=== PATIENT | female | born 1950 | race Caucasian/White ===

== ENCOUNTER → 2021-12-06 08:58 | Outpatient (BNVA) | payer MEDICARE, OTHER, SELFPAY | PROVIDERS: PCP Physician Assistant Medical; Visit Provider Psychiatry & Neurology Neurology | DX: R51.9 Headache, unspecified (principal); R41.89 Other symptoms and signs involving cognitive functions and awareness; F32.A Depression, unspecified; Z79.899 Other long term (current) drug therapy | CPT/HCPCS: 99212 ==

== ENCOUNTER → 2022-09-26 11:30 | Outpatient (BNVA) | payer MEDICARE, OTHER, SELFPAY | PROVIDERS: PCP Physician Assistant Medical; Visit Provider Psychiatry & Neurology Neurology | DX: R41.89 Other symptoms and signs involving cognitive functions and awareness (principal); R51.9 Headache, unspecified; F32.A Depression, unspecified | CPT/HCPCS: 99212 ==

== ENCOUNTER → 2022-12-31 15:22 | Outpatient (BNVA) | payer MEDICARE, OTHER, SELFPAY | PROVIDERS: PCP Physician Assistant Medical; Visit Provider Psychiatry & Neurology Neurology | DX: R41.89 Other symptoms and signs involving cognitive functions and awareness (principal); R51.9 Headache, unspecified; F32.A Depression, unspecified | CPT/HCPCS: 99212 ==

== ENCOUNTER 2023-06-20 12:27 | Outpatient (AMB) | payer MEDICARE, OTHER, SELFPAY ==
--- NOTE | 2023-06-20 12:28 | MHC.OFFVIS ---
Intake Vital Signs 06/20/23 12:30 Weight 192 lb 8 oz BP 130/96 H Blood Pressure Location Rt brachial Position Sitting Pulse 104 H Pulse Source Pulse Oximeter Pulse Oximetry (%) 98 Oxygen Delivery Method Room Air Intake Visit Reasons: 6m f/u headaches - LVM Allergies ketoconazole Allergy (Unknown, Verified 06/20/23 12:32) Unknown maladrone Allergy (Unknown, Uncoded 12/31/22 15:41) vision Medication List - Last Reconciled 06/20/23 by Nery Frank MD carboxymethylcellulose sodium (Refresh Contacts eye drops) 1 drp ophthalmic (eye) BID cholecalciferol (vitamin D3) 25 mcg PO DAILY escitalopram oxalate mg PO BID famotidine 40 mg PO DAILY levothyroxine 75 mcg PO DAILY magnesium oxide 400 mg PO BEDTIME methylphenidate HCl 5 mg PO DAILY multivitamin 1 tab PO DAILY HPI HPI Comments History of Present Illness Details 72y/o female comes for follow up of headaches, neck pain, cognitive difficulties , anxiety , depression.she is doing better. Her friend has been diagnosed with throat cancer and she is sad. she is keeping herself occupied with art acivities. she makes journals, notebooks and hand made cards, No headaches.sleep is good . Mood is stable . [facility] Medical History GERD (gastroesophageal reflux disease) Depression Surgical History H/O mastectomy Hx of rotator cuff surgery Hx of hysterectomy History of section Family History Mother Stroke Osteoarthritis Depressive disorder Thyroid disorder Father Swallowing problem Sister Cerebral hemorrhage Social History Alcohol intake: current Alcohol intake frequency: holidays/special occasions only Patient Tobacco Use Status: Never used Tobacco Physical Exam Vital Signs: Last Vital Signs Pulse 104 H 06/20/23 12:30 BP 130/96 H 06/20/23 12:30 Pulse Ox 98 06/20/23 12:30 Oxygen Delivery Method Room Air 06/20/23 12:30 Const Other: antecollis and left laterocollis General: cooperative and healthy appearing Orientation/consciousness: patient oriented x3 Neuro General: patient oriented x3, gait normal, tone normal and moves all extremities Cranial nerves: Yes CN's II-XII intact bilaterally Cognition (Neuro): normal cognition Assessment & Plan Assessment & Plan (1) Cognitive change: Code(s): R41.89 - Other symptoms and signs involving cognitive functions and awareness (2) Bilateral headaches: Comment: resolved Code(s): R51.9 - Headache, unspecified (3) Depression: Code(s): F32.A - Depression, unspecified Plan Continue magnesium 400mg qhs lexapro 10mg bid ritalin 5 mg qam Coding Level of Care Code Est Pt Level 4 (66917) Diagnoses Cognitive change R41.89 Bilateral headaches R51.9 Depression F32.A
[2023-06-20 12:30] VITALS: BP 130/96; PULSE 104; O2SAT 98
== END 2023-06-20 13:01 | disposition home or self-care (01) ==
PROVIDERS: PCP Physician Assistant Medical; Visit Provider Psychiatry & Neurology Neurology
DX: R41.89 Other symptoms and signs involving cognitive functions and awareness (principal); R51.9 Headache, unspecified; F32.A Depression, unspecified
CPT/HCPCS: 99214

== ENCOUNTER → 2023-06-20 12:27 | Outpatient (BNVA) | payer MEDICARE, OTHER, SELFPAY | PROVIDERS: PCP Physician Assistant Medical; Visit Provider Psychiatry & Neurology Neurology | DX: R51.9 Headache, unspecified (principal); R41.89 Other symptoms and signs involving cognitive functions and awareness; F32.A Depression, unspecified | CPT/HCPCS: 99212 ==

== ENCOUNTER 2024-06-15 12:14 | Outpatient (AMB) | payer MEDICARE, OTHER, SELFPAY ==
[2024-06-15 12:39] VITALS: BP 130/90; BMI 37.5
--- NOTE | 2024-06-15 12:39 | A.OFFVIS_ITS ---
Vital Signs 06/15/24 12:39 Height 5 ft Weight 192 lb BMI 37.5 BP 130/90 H Blood Pressure Location Rt brachial Position Sitting Intake Visit Reasons: 1 yr f/u - Headaches Intake Note: Patient presents for 1 year follow up. still having issues with concentration and tiredness. Allergies ketoconazole Allergy (Unknown, Verified 06/15/24 12:43) Unknown maladrone Allergy (Unknown, Uncoded 06/15/24 12:43) vision Medication List - Last Reconciled 06/15/24 by Kwaku Ramon PA-C carboxymethylcellulose sodium (Refresh Contacts eye drops) 1 drp ophthalmic (eye) BID cholecalciferol (vitamin D3) 25 mcg PO DAILY escitalopram oxalate mg PO BID famotidine 40 mg PO DAILY levothyroxine 75 mcg PO DAILY magnesium oxide 400 mg PO BEDTIME methylphenidate HCl 5 mg PO DAILY multivitamin 1 tab PO DAILY HPI Comments Details: 72y/o female comes for follow up of headaches. Her headaches are better. She is more tired and tires easily, she sleeps a lot, and concentration of focus does not last as the medication (Ritalin) wears off. She is better in the morning, in the evenings she does mindless stuff' d/t lack of attention. She is depressed d/t housing situation with neighbors, trauma induced PTSD, she is coping with meditation prayer, psychotherapy. Goes to the [employer] 2-3 times a week, swimming and water aerobics. Her neck pain, just depends on the way she sleeps, she sees the chiropractor 6-7 week intervals. Cognitive difficulties , still with word and name finding difficulty, and spelling. Anxiety, is better controlled with diet and exercise. Mood has declined, feels more depressed, sadness due to family estrangement. Independent with all ADLs. Her friend has been diagnosed with throat cancer and she is sad, she has a psychotherapist and speaks with him every 2-3 weeks. She is keeping herself occupied with art activities. she makes journals, notebooks and hand made cards. She is interested in treatment with Ketamine - Dr. Booker in [place], plans to start her at 50mg. [facility] Medical History GERD (gastroesophageal reflux disease) Depression Surgical History H/O mastectomy Hx of rotator cuff surgery Hx of hysterectomy History of section Family History Mother Stroke Osteoarthritis Depressive disorder Thyroid disorder Father Swallowing problem Sister Cerebral hemorrhage Social History Alcohol intake: current Alcohol intake frequency: holidays/special occasions only Patient Tobacco Use Status: Never used Tobacco Review of Systems Const All systems reviewed & are unremarkable except as noted in HPI and below Physical Exam Vital Signs: Last Vital Signs BP 130/90 H 06/15/24 12:39 BMI result Body Mass Index 37.5 Const General: cooperative, comfortable and no acute distress Nutritional Appearance: average body habitus and obese Orientation/consciousness: patient oriented x3 Eyes Pupils: Equal, round and reactive pupils present Neck Neck: Yes full ROM Resp Effort & Inspection: normal respiratory effort and able to speak in complete sentences Neuro General: patient oriented x3 Cranial nerves: Yes CN's II-XII intact bilaterally, Yes Facial sensation intact/muscles of mastication intact, Yes Equal, round and reactive pupils present, Yes Normal accommodation reflex present, Yes Bilaterally intact EOM present, Yes Nystagmus not present, Yes Normal facial strength present, Yes Midline tongue present, Yes Symmetric palate elevation present, Yes Ability to bilaterally rotate head present and Yes Ability to bilaterally elevate shoulders present Gait exam (Neuro): Normal gait present Motor exam (neuro): 5/5 motor strength present throughout and Normal motor muscle tone present throughout Deep tendon reflexes (DTR's): Right triceps reflex intensity grade: 2+, Left triceps reflex intensity grade: 2+, Rt Biceps (C5, C6): 2+, Left biceps reflex intensity grade: 2+, Right brachioradialis reflex intensity grade: 2+, Left brachioradialis reflex intensity grade: 2+, Right patellar reflex intensity grade: 2+ and Left patellar reflex intensity grade: 2+ Coordination: frdibt-vs-[id number] test normal Psych Appearance: grossly normal Affect: Sad affect present Attitude: cooperative Thought process: Normal thought process present Insight: Good insight present (Psych) Judgement: Good judgement present (Psych) Results Reviewed Results Reviewed: Ketamine Drug Therapy for Neuroplasticity, Dr. Felicia Keenan in [place]. 50mg grading for depression, will take with her licensed therapist and unit secy in office. Assessment & Plan Assessment & Plan (1) Cognitive change: Code(s): R41.89 - Other symptoms and signs involving cognitive functions and awareness Category: Medical (2) Depression: Code(s): F32.A - Depression, unspecified Category: Medical Qualifiers: Depression Type: other depression Qualified Code(s): F32.89 - Other specified depressive episodes Plan Continue magnesium 400mg qhs Lexapro 10mg bid Ritalin 5 mg qam Follow up in 6 months or sooner if needed you may call with questions and concerns. Coding Level of Care Code Est Pt Level 3 (21694) Diagnoses Cognitive change R41.89 Other depression F32.89 Depression Type: other depression
== END 2024-06-15 13:34 | disposition home or self-care (01) ==
PROVIDERS: PCP Physician Assistant Medical; Visit Provider Physician Assistant Medical
DX: R41.89 Other symptoms and signs involving cognitive functions and awareness (principal); F32.89 Other specified depressive episodes
CPT/HCPCS: 99213

== ENCOUNTER → 2024-06-15 12:14 | Outpatient (BNVA) | payer MEDICARE, OTHER, SELFPAY | PROVIDERS: PCP Physician Assistant Medical; Visit Provider Physician Assistant Medical | DX: R41.89 Other symptoms and signs involving cognitive functions and awareness (principal); M54.2 Cervicalgia; F32.89 Other specified depressive episodes | CPT/HCPCS: 99212 ==

== ENCOUNTER 2024-12-14 08:18 | Outpatient (AMB) | payer MEDICARE, OTHER, SELFPAY ==
[2024-12-14 08:21] VITALS: BP 120/78; PULSE 76; O2SAT 96; BMI 38.1
--- NOTE | 2024-12-14 08:21 | MHC.OFFVIS ---
Vital Signs 12/14/24 08:21 Height 5 ft Weight 195 lb BMI 38.1 BP 120/78 Blood Pressure Location Rt brachial Position Sitting Pulse 76 Pulse Source Pulse Oximeter Pulse Oximetry (%) 96 Oxygen Delivery Method Room Air Intake Visit Reasons: 6 mo follow up Intake Note: Patient presents follow up cognitive. Allergies ketoconazole Allergy (Unknown, Verified 12/14/24 08:25) Unknown maladrone Allergy (Unknown, Uncoded 12/14/24 08:25) vision HPI Comments Details: 73y/o female comes for follow up of headaches and sleep disturbances. Her headaches are better managed now, she is on a ketamine journey, supervised in clinic, ptsd, depression, [facility], every 3-4 months as an outpatient She is on 50mg at initial and 50 at 12min later, then swallow after the 12 min, tingling and then deep dark water feeling, then out of body experience like a jelly fish pulsating and relaxed, she saw a candle and vapor of flame and she was the essence of this flame, intertwined like snakes, but a presence of god. One hour later she came out of this mystical experience then completely still for 25 min.She is prescribed by Dr. Keenan, and monitored by her psychotherapist. Sleep, is still fragemented and gets up 2-3 times a night, 3-4am, watching tv or reading, her energy levels still tend to fluctuate. she is taking naps daily 20min to 2 hours. Lack of concentration at night (Ritalin) wears off, makes a list. She is more productive in the mornings and she does mindless tasks , in the evening. Has a list she checks off for eye meds, anterial scleritis (timolol +steroid for inflammation) pressure is now 15 bilaterally and URI on amxo-cluav, and prednisone, inflammatory. She is mentally doing better with her neighbors and trying to find a new therapist, he is leaving after 14 years. Her neck pain, just depends on the way she sleeps, she sees the chiropractor 6-7 week intervals. Cognitive difficulties, still with word and name finding, spelling difficulty. Mood has improved, she is making water coloring books, spring cleaning, declutterring all her art supplies. Goes to the [employer] 2-3 times a week, swimming and water aerobics and is Independent with all ADLs. [facility] Medical History GERD (gastroesophageal reflux disease) Depression Surgical History H/O mastectomy Hx of rotator cuff surgery Hx of hysterectomy History of section Family History Mother Stroke Osteoarthritis Depressive disorder Thyroid disorder Father Swallowing problem Sister Cerebral hemorrhage Social History Alcohol intake: current Alcohol intake frequency: holidays/special occasions only Patient Tobacco Use Status: Never used Tobacco Review of Systems Const All systems reviewed & are unremarkable except as noted in HPI and below Physical Exam Vital Signs: Last Vital Signs Pulse 76 12/14/24 08:21 BP 120/78 12/14/24 08:21 Pulse Ox 96 12/14/24 08:21 Oxygen Delivery Method Room Air 12/14/24 08:21 BMI result Body Mass Index 38.1 Const General: cooperative, comfortable and no acute distress Nutritional Appearance: obese Orientation/consciousness: patient oriented x3 Eyes Pupils: Equal, round and reactive pupils present Neck Neck: Yes full ROM Resp Effort & Inspection: normal respiratory effort and able to speak in complete sentences Neuro General: patient oriented x3 and moves all extremities Cranial nerves: Yes CN's II-XII intact bilaterally, Yes Equal, round and reactive pupils present, Yes Normal accommodation reflex present, Yes Normal facial strength present, Yes Midline tongue present, Yes Normal gag reflex present, Yes Ability to bilaterally rotate head present and Yes Ability to bilaterally elevate shoulders present Psych Thought process: Normal thought process present Thought content: Normal thought content present Assessment & Plan Assessment & Plan (1) Cognitive change: Code(s): R41.89 - Other symptoms and signs involving cognitive functions and awareness Category: Medical (2) Depression: Code(s): F32.A - Depression, unspecified Category: Medical Qualifiers: Depression Type: other depression Qualified Code(s): F32.89 - Other specified depressive episodes Plan Depression Continue magnesium 400mg qhs Lexapro 10mg bid Attention and focus Ritalin 5 mg qam. Follow up in 6 months or sooner if needed you may call with questions and concerns. Patient Instructions: Sleep Hygiene provided: set a scheduled bedtime and wake time to help regulate the circadian rhythm and balance the release of pituitary hormones. Sleep in a dark room, temperatures below 68 degrees, and no devices n bed. Limit caffeinated products 6 hours prior to bed, and limit fluids 2-4 hours prior to bed. Gentle night yoga, diffusing essential oils, and playing soft music can be relaxing. Coding Level of Care Code Est Pt Level 4 (47715) Diagnoses Cognitive change R41.89 Other depression F32.89 Depression Type: other depression Time Spent (min) 30 Comment Improving
== END 2024-12-14 09:25 | disposition home or self-care (01) ==
LOC: HO.HSMS 08:19
PROVIDERS: PCP Physician Assistant Medical; Visit Provider Physician Assistant Medical
DX: R41.89 Other symptoms and signs involving cognitive functions and awareness (principal); F32.89 Other specified depressive episodes
CPT/HCPCS: 99214

== ENCOUNTER → 2024-12-14 08:18 | Outpatient (BNVA) | payer MEDICARE, OTHER, SELFPAY | PROVIDERS: PCP Physician Assistant Medical; Visit Provider Physician Assistant Medical | DX: R41.89 Other symptoms and signs involving cognitive functions and awareness (principal); F32.89 Other specified depressive episodes | CPT/HCPCS: 99212 ==

== ENCOUNTER 2025-05-17 08:18 | Outpatient (AMB) | payer MEDICARE, OTHER, SELFPAY ==
--- OUTSIDE RECORDS SUMMARY | 2024-12-25 09:00 | XMS_ITS | Continuity of Care Document ---
Author Organization [facility] Address [address] [place] [address] [address] [place] [address] Phone Care Team Providers Care Television Maintenance Man Name Role Phone Jian MCCRARY, ELAINA, CODIE, Louis Unavailable U navailable Procedures Procedure Date Duplex Scan-extrem Veins; Uni/ [place] & [place] J Advance Directives Directive Yes / No Effective Date File Name No Information Encounters Encounter Description Practice Location Reason(s) For Visit Diagnoses Date Provider Providers Copied on Encounter [facility], [address] [facility] [address], [place], [id number], [place] tel:[phone] [facility] - [place] - [place] Pain in right leg 5 Jian MCCRARY, ELAINA, CODIE [place]. [address] [place] [address] [address], [place], [place], [id number] , [place]. tel:[phone] Referring Provider: Dedrick Kaiser MD J, [address] [address], [place], [address]. tel:[phone] Family History Family Member Type Diagnosis Age At Onset No Information Payers Payer name Insurance type Covered libertarian ID Authoriza tion(s) Medicare KALYAN PICKARD [id number] [facility] CI [id number] Social History Type Description Quantity Date Captured Comments Sex Female Smoking Status No Information Chief Complaint And Reason For Visit No Information Reason For Referral Reason For Referral No Information History Of Present Illness Encounter Date Complaint History Of Prese nt Illness No Information Functional Status Date Functional Assessmen t No Information Instructions Date Instruction Additional Infor mation No Information Assessments Type Assessment Date No Information Patient Care Teams Name Effective Dates (start - stop) Status Members No Information
--- NOTE | 2025-05-17 08:20 | MHC.OFFVIS ---
Vital Signs 05/17/25 08:21 Height 5 ft Weight 183 lb 4 oz BMI 35.8 BP 128/86 Blood Pressure Location Rt brachial Position Sitting Pulse 84 Pulse Source Pulse Oximeter Pulse Oximetry (%) 97 Oxygen Delivery Method Room Air Intake Visit Reasons: f/u with MD Intake Note: Follow up Cognitive change and Depression last seen Kwaku Hoisting Engineer Required: No Accompanied by: Self / Same As Patient Allergies ketoconazole Allergy (Unknown, Verified 05/17/25 08:21) Unknown maladrone Allergy (Unknown, Uncoded 12/14/24 08:25) vision Medication List - Last Reconciled 05/17/25 by Nery Frank MD carboxymethylcellulose sodium (Refresh Contacts eye drops) 1 drp ophthalmic (eye) BID cholecalciferol (vitamin D3) 25 mcg PO DAILY escitalopram oxalate mg PO BID famotidine 40 mg PO DAILY levothyroxine 75 mcg PO DAILY magnesium oxide 400 mg PO BEDTIME methylphenidate HCl 5 mg PO DAILY montelukast 10 mg PO DAILY multivitamin 1 tab PO DAILY HPI Comments Details: 74y/o female comes for follow up of headaches and sleep disturbances. Her headaches are better . she has 1/month and manageable. she was under stress this summer- as she had to move out of her apartment that she lived for 27 years.she is in a different apartment SLeep is ok . There are some days that she needs tylenol PM to help her sleep. she still has trouble with attention, focusing . she also reports occasional numbness in the left toes and pain . It started when she was going up and down the stairs .It is better with changing shoes History from visit 12/2024- she is on a ketamine journey, ( 100mg q 4 mths ) supervised in clinic, ptsd, depression, [facility], every 3-4 months as an outpatient She is on 50mg at initial and 50 at 12min later, then swallow after the 12 min, tingling and then deep dark water feeling, then out of body experience like a jelly fish pulsating and relaxed, she saw a candle and vapor of flame and she was the essence of this flame, intertwined like snakes, but a presence of god. One hour later she came out of this mystical experience then completely still for 25 min.She is prescribed by Dr. Keenan, and monitored by her psychotherapist. Sleep, is still fragemented and gets up 2-3 times a night, 3-4am, watching tv or reading, her energy levels still tend to fluctuate. she is taking naps daily 20min to 2 hours. Lack of concentration at night (Ritalin) wears off, makes a list. She is more productive in the mornings and she does mindless tasks , in the evening. Has a list she checks off for eye meds, anterial scleritis (timolol +steroid for inflammation) pressure is now 15 bilaterally and URI on amxo-cluav, and prednisone, inflammatory. She is mentally doing better with her neighbors and trying to find a new therapist, he is leaving after 14 years. Her neck pain, just depends on the way she sleeps, she sees the chiropractor 6-7 week intervals. Cognitive difficulties, still with word and name finding, spelling difficulty. Mood has improved, she is making water coloring books, spring cleaning, declutterring all her art supplies. Goes to the [employer] 2-3 times a week, swimming and water aerobics and is Independent with all ADLs. [facility] Medical History GERD (gastroesophageal reflux disease) Depression Surgical History H/O mastectomy Hx of rotator cuff surgery Hx of hysterectomy History of section Family History Mother Stroke Osteoarthritis Depressive disorder Thyroid disorder Father Swallowing problem Sister Cerebral hemorrhage Social History Alcohol intake: current Alcohol intake frequency: holidays/special occasions only Patient Tobacco Use Status: Never used Tobacco Physical Exam Vital Signs: Last Vital Signs Pulse 84 05/17/25 08:21 BP 128/86 05/17/25 08:21 Pulse Ox 97 05/17/25 08:21 Oxygen Delivery Method Room Air 05/17/25 08:21 BMI result Body Mass Index 35.8 Const General: cooperative, comfortable and no acute distress Nutritional Appearance: obese Orientation/consciousness: patient oriented x3 Eyes Pupils: Equal, round and reactive pupils present Neck Neck: Yes full ROM Resp Effort & Inspection: normal respiratory effort and able to speak in complete sentences Neuro General: patient oriented x3 and moves all extremities Cranial nerves: Yes CN's II-XII intact bilaterally, Yes Equal, round and reactive pupils present, Yes Normal accommodation reflex present, Yes Normal facial strength present, Yes Midline tongue present, Yes Normal gag reflex present, Yes Ability to bilaterally rotate head present and Yes Ability to bilaterally elevate shoulders present Psych Thought process: Normal thought process present Thought content: Normal thought content present Assessment & Plan Assessment & Plan (1) Cognitive change: Code(s): R41.89 - Other symptoms and signs involving cognitive functions and awareness Category: Medical (2) Depression: Code(s): F32.A - Depression, unspecified Category: Medical Qualifiers: Depression Type: other depression Qualified Code(s): F32.89 - Other specified depressive episodes Plan Depression Continue magnesium 400mg qhs Lexapro 10mg bid Attention and focus Ritalin 5 mg qam- prescribed by PCP Neuropsych testing to evaluate for dementia MRI brain Follow up in 12 months or sooner if needed you may call with questions and concerns. Orders: Orders MR head/brain wo con Today R41.89 - Other symptoms and signs involving cognitive functions and awareness Referrals Neuropsychiatry Referral R41.89 - Other symptoms and signs involving cognitive functions and awareness Coding Level of Care Code Est Pt Level 4 (31177) Complex EM visit Add On G2211 Diagnoses Cognitive change R41.89 Other depression F32.89 Depression Type: other depression
[2025-05-17 08:21] VITALS: BP 128/86; PULSE 84; O2SAT 97; BMI 35.8
--- OUTSIDE RECORDS SUMMARY | 2025-05-17 08:35 | XMS_ITS | Clinical Summary ---
Author Organization [facility] Address [address] [place] [address] Phone Care Team Providers Care Energy Audit Advisor Name Role Phone Kamila Jonas Primary Care Provider Allergies Active Allergy Reactions Criticality Noted Date Comments Atovaquone-Proguanil Other High 11/23/2012 Almost blind as a reaction Ketoconazole Angioedema,Hives,Itc h ing,Other High 01/01/2017 cream 2% Other 12/01/2020 [facility] Medications omeprazole-sodi um bicarbonate 20-1.1 mg-gram capsule Take by mouth. Activ e OMEGA-3 FATTY ACIDS ORAL Take by mouth. Acti ve multivitamin (MULTIPLE VITAMINS ORAL) Take by mouth. Active famotidine (PEPCID) 40 mg tablet Take 1 tablet (40 mg total) by mouth. Active methylphenidate (RITALIN) 5 mg tablet Take 1 tablet (5 mg total) by mouth 2 (two) times daily before breakfast and lunch. Active bisacodyL (DULCOLAX) 5 mg EC tablet Take 2 tablets by mouth right before beginning bowel prep. See instructions provided by the office 2 tablet 5 Active polyethylene glycol (Golytely) 236-22.74-6.74 -5.86 gram solution Take 4L by mouth once for one dose. May substitue any PEG. Starting at 6PM the night before your procedure drink 1 8oz glasses at your own pace until you complete half of the gallon. Finish 2nd half of the gallon 5 hours before your procedure. 4000 mL 5 Active levothyroxine (SYNTHROID, LEVOTHROID) 75 mcg tablet TAKE 1 TABLET BY MOUTH 6 DAYS A WEEK, AND TAKE 2 TABS ONCE WEEKLY 5 Active escitalopram (LEXAPRO) 10 mg tablet Take 1 tablet (10 mg total) by mouth 2 (two) times a day. 5 Active polyvinyl alcohol-povidon e, PF, (ARTIFICIAL TEARS) 1.4-0.6 % ophthalmic solution 2 drops 4 times a day by ophthalmic route. Active timolol (TIMOPTIC) 0.5 % ophthalmic solution Administer 1 drop into both eyes 2 (two) times a day. 5 Active montelukast (SINGULAIR) 10 mg tablet Take 1 tablet (10 mg total) by mouth 1 (one) time each day. Active calcium carbonate 1,500 mg (600 mg elemental calcium) tablet Take 1 tablet (1,500 mg total) by mouth 1 (one) time each day. 6 Active cholecalciferol (Vitamin D3) 25 mcg (1,000 unit) tablet Take 1,000 Int'l Units by mouth. 6 Active magnesium oxide (MAG-OX) 400 mg magnesium tablet Take 1 tablet (400 mg total) by mouth 1 (one) time each day. 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 Bilateral simple mastectomy, right axilla sentinel lymph node biopsy on 12/14/20. Depression Overview (05/21/2024): DX:Depression GERD (gastroesophageal reflux disease) Overview (05/21/2024): DX:GERD (gastroesophageal reflux disease) IBS (irritable bowel syndrome) Overview (05/21/2024): DX:IBS (irritable bowel syndrome) Hypothyroidism Resolved Problems Problem Noted Date Diagnosed Date Resolved Date Thyroid disease 05/21/2024 Overview (05/21/2024): DX:Thyroid disease Immunizations Immunization Administration Dates Next Due Hepatitis A Adult (Havrix; V aqta) 19yo and older 02/19/2013,09/04/2012 Hepatitis B (Qzwnpsn-D-Lxebv , Recombivax HB-Adult) 19yo and older 05/04/2014,04/20/2014,04/13/2014 IPV Inactivated polio (Ipol) 6wks and older 03/17 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 09/03/19,09/04/2012 Surgical History Surgery Date Site/Laterality Comments SECTION PROCEDURE: DC DELIVERY ONLY ROTATOR CUFF REPAIR Bilateral PROCEDURE: HISTORICAL ROTATOR CUFF REPAIR OTHER SURGICAL HISTORY 12/14/2020 Bilateral PROCEDURE: DC MASTECTOMY SIMPLE COMPLETE; COMMENT: Bilateral simple mastectomy, right axilla sentinel lymph node biopsy Medical History Medical History Date Comments Wears glasses DX:Wears glasses IBS (irritable bowel syndrome) D X:IBS (irritable bowel syndrome) Depression DX:Depression Memory loss DX:Memory loss Respiratory failure (CMS/HCC V24, CMS/HCC V28) DX:Respiratory failure (HCC) GERD (gastroesophageal reflux disease) DX:GERD (gastroesophageal reflux disease) Hypothyroidism Family History Medical History Relation Name Comments Prostate cancer Father Testicular cancer Father Breast cancer Grandparent Throat cancer Grandparent Relation Name Status Comments Father Grandparent Other Social History Tobacco Use Types Packs/Day Years Used Date Smoking Tobacco: Never Smokeless Tobacco: Never Comments Unknown Sex and Gender Information Value Date Recorded Sex Assigned at Not on file Legal Sex Female 2:06 AM EST Gender Identity Not on file Sexual Orientation Not on file Obstetrics History Last Filed Vital Signs Vital Sign Reading Time Taken Comments Blood Pressure 127/84 05/21/2024 1:02 PM EST Pulse 73 05/21/2024 1:02 PM EST Temperature 37 C (98.6 F) 05/21/2024 1:02 PM EST Respiratory Rate - - Oxygen Saturation - - Inhaled Oxygen Concentration - - Weight 87.5 kg (193 lb) 11/23/2024 9:00 AM EDT Height 152.4 cm (5') 11/23/2024 9:00 AM EDT Body Mass Index 37.69 11/23/2024 9:00 AM EDT Plan of Treatment Upcoming Encounters Date Type Department Care Team (Late st Contact Info) Description 05/25/2025 1:20 PM EST Office Visit [facility] [address] [place] [id number] Tonya Birmingham MD [address] [place] [address] Health Maintenance Due Date Last Done Comments IPV Vaccines (2 of 3 - Adult catch-up series) 05/11/2014 04/13/2014 Hepatitis B Vaccines (2 of 3 - 19+ 3-dose series) 06/01/2014 05/04/2014, 04/20/2014, 04/13/2014 Cholesterol Screening (Lipid Panel) 06/17/2022 Falls Risk Assessment 06/17/2022 Hepatitis C Screening 06/17/2022 Social Influencers of Health Screening 06/17/2022 Breast Cancer Screening 11/15/2022 11/16/19 21, 08/28/2019, 08/28/2019, Additional history exists Medicare Annual Wellness Visit 02/05/2024 02/04/2023 Depression Screening 07/15/2024 COVID-19 Vaccine (8 - Moderna risk season) 2025 04/13/2024, 04/17/2023, 04/12/2022, Additional history exists Influenza Vaccine (#1) 2025 , 04/17/2023, 04/12/2022, Additional history exists Osteoporosis Screening (Bone Density Screening) 02/16/2034 02/17/2024, 11/15/2020, 07/27/2014 DTaP,Tdap,and Td Vaccines (5 - Td or Tdap) 09/12/2034 09/12/2024, 10/29/2022, 07/22/2012, Additional history exists Colorectal Cancer Screening: Colonoscopy 11/24/2034 11/24/2024 Hepatitis A Vaccines Aged Out 02/19/2013, 09/04/19 13 No longer eligible based on patient's age to complete this topic Pneumococcal Vaccine: 50+ Years Completed 05/09/2017, 03/27/2016, 02/06/2007, Additional history exists Zoster Vaccines Completed 06/08/2018, 03/16, 11/12/2012 RSV Immunization Adult Patients Completed 04/04/2023 HIB Vaccines Aged Out No longer eligi ble based on patient's age to complete this topic HPV Vaccines Aged Out No longer eligi ble based on patient's age to complete this topic MMR Vaccines Aged Out No longer eligi ble based on patient's age to complete this topic Meningococcal ACWY Vaccine Aged Out N o longer eligible based on patient's age to complete this topic Meningococcal B Vaccine Aged Out No l onger eligible based on patient's age to complete this topic RSV Immunization Patients Under 20 months Aged Out No longer eligible based on patient's age to complete this topic Varicella Vaccines Aged Out No longer eligible based on patient's age to complete this topic Procedures Procedure Name Priority Date/Time Associated Diagnosis Comments EXTERNAL COLONOSCOPY REPORT Routine 11/24/2024 11:[address] [facility] DEXA AXIAL SKELETON Routine 02/17/2024 9:19 AM EDT Other specified disorders of bone density and structure, multiple sites [facility] SCREENING DIGITAL Routine 11/15/2020 4:34 PM EDT Encounter for screening mammogram for malignant neoplasm of breast from Last 3 Months or Most Recently Relevant to Health Maintenance Results * External Colonoscopy Report (11/24/2024 11:35 AM EDT) Anatomical Region Laterality Modality Endoscopy us Historical Provider GI~PROCEDURE ORDERABLES F inal Result * [facility] DEXA AXIAL SKELETON (02/17/2024 9:19 AM EDT) Anatomical Region Laterality Modality Mammography 02/17/2024 8:22 AM EDT Narrative 02/17/2024 9:19 AM EDT [facility] Diagnostic Imaging Department [address] [place] [id number] Patient: VANESSA ARMIJO Sofya /Age/Sex: 1950 - 73 - F Unit#: [id number] Location/Status: SPDIMAM/REG CLI Mnemonic/Ordering Site: MAMDEXAAX/SPMAM Ordering Physician: KAMILA JONAS PA-C Raul Dexa Axial Skeleton - 02/17/24851 Report Status:Signed HISTORY: The patient is a 73-year-old postmenopausal female with clinical concern for metabolic bone disease. FINDINGS: Dual energy x-ray absorptiometry of the lumbar spine and femurs is performed. The mean bone mineral density at L1-L4 (with the exclusion of L3) is 1.569 gm/cm2 which is 134% of that of young normals and 148% of that of age matched controls. This yields a T-score of 3.3 and a Z-score of 4.2 and there is therefore no evidence of osteoporosis or osteopenia here. The mean bone mineral density of the femurs bilaterally is 1.121 gm/cm2 which is 111% of that of young normals and 128% of that of age matched controls. This yields a T-score of 0.9 and a Z-score of 2.0 and there is therefore no evidence of osteoporosis or osteopenia here. IMPRESSION: 1. There is no evidence of osteoporosis or osteopenia. There has been a decrease of 3.9% in bone mineral density in the lumbar spine since the prior examination of 11/15/2020. There has been a decrease of 3.9% in bone mineral density in the right femur and a decrease of 4.1% in bone mineral density in the left femur. 2. FRAX analysis yields a 10-year probability of major osteoporotic fracture of 11.0% and a 10-year probability of hip fracture of 0.7%. Code 36658 Dictating Physician: CORRY CARDOZO MD Electronically Signed by: CORRY CARDOZO MD Dic Date/Time: 02/17/24916 Sign date/Time: 02/17/24918 Procedure Note Corry Cardozo MD - 04/29/2024 [facility] Diagnostic Imaging Department [address] [place] [address] Patient: VANESSA ARMIJO /Age/Sex: 1950 - 73 - F Unit#: [id number] Location/Status: SPDIMAM/REG CLI Mnemonic/Ordering Site: MAMDEXAAX/SPMAM Ordering Physician: KAMILA JONAS PA-C Raul Dexa Axial Skeleton - 02/17/24851 Report Status:Signed HISTORY: The patient is a 73-year-old postmenopausal female withclinical concern for metabolic bone disease. FINDINGS: Dual energy x-ray absorptiometry of the lumbar spine and femursis performed. The mean bone mineral density at L1-L4 (with the exclusion ofL3) is 1.569 gm/cm2 which is 134% of that of young normals and 148% of that ofage matched controls. This yields a T-score of 3.3 and a Z-score of 4.2 andthere is therefore no evidence of osteoporosis or osteopenia here. The mean bone mineral density of the femurs bilaterally is 1.121 gm/pb8ufhvv is 111% of that of young normals and 128% of that of age matched controls.This yields a T-score of 0.9 and a Z-score of 2.0 and there is therefore noevidence of osteoporosis or osteopenia here. IMPRESSION: 1. There is no evidence of osteoporosis or osteopenia. There has been a decrease of 3.9% in bone mineral density in the lumbar spine since theprior examination of 11/15/2020. There has been a decrease of 3.9% in bonemineral density in the right femur and a decrease of 4.1% in bone mineral densityin the left femur. 2. FRAX analysis yields a 10-year probability of major osteoporoticfracture of 11.0% and a 10-year probability of hip fracture of 0.7%. Code 61312 Dictating Physician: CORRY CARDOZO MD Electronically Signed by: CORRY CARDOZO MD Dic Date/Time: 02/17/24916 Sign date/Time: 02/17/24918 us Kamila BORJA [employer] BI PROCEDURES Final Resu lt * RAUL SCREENING DIGITAL (11/15/2020 4:34 PM EDT) Anatomical Region Laterality Modality Mammography 11/15/2020 9:03 AM EDT Narrative 11/15/2020 4:34 PM EDT [facility] Diagnostic Imaging Department [address] [place] [address] Patient: VANESSA ARMIJO Y /Age/Sex: 1950 - 69 - F Unit#: [id number] [facility]Ordering Site: [facility] Ordering Physician: KAMILA JONAS PA-C Raul Screening Digital - 11/15/20958 History: Breast cancer screening. Technique: Bilateral digital mammography. Conventional CC and MLO projections with tomosynthesis MLO views and computer aided detection. Comparison: [facility] 08/28/2019, dating back to 03/02/2005. Findings: Breast tissue consists of fibroglandular tissue diffusely, decreasing sensitivity of mammography, category d density (as calculated by [employer] software). Grouping of branching calcifications identified within the anterior lateral right breast with variability in size and shape. Mild associated increased tissue density without discernible mass. Breast tissue elsewhere on the right and left breast are without concerning interval change. Lobular masslike asymmetries noted posterior lateral left breast and mid lateral right breast with coarse calcification of the right. No suspicious change. Impression: Focal grouping of fairly faint calcifications anterior lateral right breast with suggestion of pleomorphism, incompletely characterized at this time. Recommend diagnostic mammography to include spot magnification views right cc and 90 degree mediolateral projections. Patient will be contacted directly to arrange for supplementary imaging. BIRADS Category 0: Incomplete. Needs further imaging evaluation, [id number], [id number] Patient information entered into a reminder system with a target date for the next mammogram. [id number] Dictating Physician: JACOB ROACH MD Electronically Signed by: JACOB ROACH MD Dic Date/Time: 11/15/20 1626 Sign date/Time: 11/15/20 1636 Procedure Note Jacob Roach MD - 07/03/2022 [facility] Diagnostic Imaging Department [address] [place] [address] Patient: VANESSA ARMIJO /Age/Sex: 1950 - 69 - F Unit#: [id number] Location/Status: [facility] CLI Mnemonic/Ordering Site: [facility] Ordering Physician: KAMILA JONAS PA-C Raul Screening Digital - 11/15/20 - 0959 History: Breast cancer screening. Technique: Bilateral digital mammography. Conventional CC and MLOprojections with tomosynthesis MLO views and computer aided detection. Comparison: [facility] 08/28/2019, dating back to 03/02/2005. Findings: Breast tissue consists of fibroglandular tissue diffusely, decreasing sensitivity of mammography, category d density (as calculatedby [employer] software). Grouping of branching calcifications identified within the anteriorlateral right breast with variability in size and shape. Mild associatedincreased tissue density without discernible mass. Breast tissue elsewhere on the right and left breast are withoutconcerning interval change. Lobular masslike asymmetries noted posterior lateralleft breast and mid lateral right breast with coarse calcification of theright. No suspicious change. Impression: Focal grouping of fairly faint calcifications anteriorlateral right breast with suggestion of pleomorphism, incompletely characterizedat this time. Recommend diagnostic mammography to include spot magnificationviews right cc and 90 degree mediolateral projections. Patient will be contacted directly to arrange for supplementary imaging. BIRADS Category 0: Incomplete. Needs further imaging evaluation, [id number], [id number] Patient information entered into a reminder system with a target date forthe next mammogram. [id number] Dictating Physician: JACOB ROACH MD Electronically Signed by: JACOB ROACH MD Dic Date/Time: 11/15/20 1626 Sign date/Time: 11/15/20 1634 Kamila BORJA IMG BI PROCEDURES Final Resu lt from Last 3 Months or Most Recently Relevant to Health Maintenance Insurance MEDICARE UNIC[facility] Advance Directives Documents on File Type Date Recorded Patient [employer] Expl anation Health Care Decision (hx) 12/07/2020 TOMAS RAMIREZ DIRECTIVE Care Teams Energy Audit Advisor Relationship Specialty Start Date End Date Kamila Jonas PA [address] [phone] PCP - General Internal Medicine 12/01/20
--- OUTSIDE RECORDS SUMMARY | 2025-05-17 08:35 | XMS_ITS ---
Author Name [facility] Organization Unknown Encounters Encounter Type Encounter Reason Primary Diagnosis Location Date Ambulatory [facility] [place] 11/27/2022
--- OUTSIDE RECORDS SUMMARY | 2025-05-17 08:35 | XMS_ITS | Clinical Summary ---
Author Organization [facility] Address [address] [place] [address] Care Team Providers Care Gutter Mouth Cutter Name Role Phone Erasmo White PA-C Primary Care Provider [phone]- [phone] Allergies Active Allergy Reactions Criticality Noted Date Comments Ketoconazole Hives Atovaquone-Proguanil Hcl 02/12/2017 Medications Medication Sig Dispensed Refills Start Date End Date Status omeprazole (PRILOSEC) 20 MG capsule Take 20 mg by mouth daily. 0 Active escitalopram (LEXAPRO) tablet 10 mg Take 10 mg by mouth daily. 0 Active cholecalciferol (VITAMIN D3) 1000 UNITS tablet Take 1,000 Units by mouth daily. 0 Active levothyroxine (SYNTHROID) tablet 75 mcg Take 100 mcg by mouth every morning on an empty stomach. 0 Active Hester-3 Fatty Acids (FISH OIL PO) Take by mouth. 0 Active famotidine (PEPCID) 40 MG tablet famotidine 40 mg tablet 0 Active acetaminophen-codein e (TYLENOL #3) 300-30 MG per tablet Take 1 tablet by mouth every 4 (four) hours as needed for pain. 0 Active Calcium Carbonate (CALCIUM-CARB 600 PO) Take by mouth. 0 Active magnesium oxide 400 (241.3 Mg) MG TABS tablet Take 400 mg by mouth 2 (two) times a day. 0 Active Multiple Vitamin (MULTI-VITAMIN DAILY PO) Take by mouth. 0 Active Active Problems Problem Noted Date Diagnosed Date Left shoulder pain 02/12/2017 Family History Medical History Relation Name Comments Cancer Father Testicular and prostate No Sig Med Hx Mother Cancer Nephew prostate Cancer Paternal Grandfather throat Cancer Paternal Grandmother Breast Relation Name Status Comments Father Not from cancer Mother Nephew Alive Paternal Grandfather (Age 77) Paternal Grandmother (Age 70s) Sister Alive Social History Tobacco Use Types Packs/Day Years Used Date Smoking Tobacco: Never Smokeless Tobacco: Never Alcohol Use Standard Drinks/Week Comments Yes 0 (1 standard drink = 0.6 oz pur e alcohol) Occasional Sex and Gender Information Value Date Recorded Sex Assigned at Not on file Gender Identity Not on file Sexual Orientation Not on file Last Filed Vital Signs Vital Sign Reading Time Taken Comments Blood Pressure 111/64 12/28/2020 3:00 PM EDT Pulse 84 12/28/2020 3:00 PM EDT Temperature 35.6 C (96.1 F) 12/28/2020 3:00 PM EDT Respiratory Rate - - Oxygen Saturation 99% 12/28/2020 3:00 PM EDT Inhaled Oxygen Concentration - - Weight 87.5 kg (193 lb) 12/28/2020 3:00 PM EDT Height 152.4 cm (5') 12/28/2020 3:00 PM EDT Body Mass Index 37.69 12/28/2020 3:00 PM EDT Plan of Treatment Health Maintenance Due Date Last Done Comments Hepatitis C Screening 1950 COVID-19 Vaccine (#1) 06/30/1951 Depression Screening 1962 Preventative Health Evaluation 1968 Colon Cancer Screening (Colonoscopy) 12/30/1995 Breast Cancer Screening (Mammogram) 2000 Fall Risk Assessment 12/30/2015 Osteoporosis Screening (DEXA Scan) 12/30/2015 DTap / Tdap / Td (2 - Td or Tdap) 07/22/2022 07/22/2012, 01/18/2003 Influenza Vaccine (#1) 2025 0, 03/15/2019, 04/01/2018, Additional history exists RSV Adult > 60+ Yrs or (1 - 1-dose 75+ series) 2025 Pneumococcal Vaccine Completed 05/09/2017, 03/27/2016, 02/06/2007, Additional history exists Shingrix-Zoster Vaccine Completed 06/08/2018, 04/03 Hepatitis B Vaccines Aged Out No long er eligible based on patient's age to complete this topic RSV Ped < 20 months Aged Out No longe r eligible based on patient's age to complete this topic Care Teams Gutter Mouth Cutter Relationship Specialty Start Date End Date Erasmo White PA-C [address] [phone] PCP - General Medical Services 12/28/20
== END 2025-05-17 08:56 | disposition home or self-care (01) ==
LOC: HO.HSMS 08:19
PROVIDERS: PCP Physician Assistant Medical; Visit Provider Psychiatry & Neurology Neurology
DX: R41.89 Other symptoms and signs involving cognitive functions and awareness (principal); F32.89 Other specified depressive episodes
CPT/HCPCS: 99214; G2211

== ENCOUNTER → 2025-05-17 08:18 | Outpatient (BNVA) | payer MEDICARE, OTHER, SELFPAY | PROVIDERS: PCP Physician Assistant Medical; Visit Provider Psychiatry & Neurology Neurology | DX: R41.89 Other symptoms and signs involving cognitive functions and awareness (principal); F32.89 Other specified depressive episodes | CPT/HCPCS: 99212 ==

== ENCOUNTER → 2025-06-22 07:13 | Outpatient (BNV) | payer MEDICARE, OTHER, SELFPAY | PROVIDERS: PCP Physician Assistant Medical; Visit Provider Radiology Diagnostic Radiology | DX: G31.9 Degenerative disease of nervous system, unspecified (principal); I67.82 Cerebral ischemia | CPT/HCPCS: 70551 ==

== ENCOUNTER 2025-06-22 07:18 | Outpatient (REF) | payer MEDICARE, OTHER, SELFPAY ==
--- OUTSIDE RECORDS SUMMARY | 2024-12-25 09:00 | XMS_ITS | Continuity of Care Document ---
Author Organization [facility] Address [address] [place] [address] [address] [place] [address] Phone Care Team Providers Care Hardening Machine Operator Name Role Phone Jian MCCRARY, ELAINA, CODIE, Louis Unavailable U navailable Procedures Procedure Date Duplex Scan-extrem Veins; Uni/ CT & [place] J Advance Directives Directive Yes / No Effective Date File Name No Information Encounters Encounter Description Practice Location Reason(s) For Visit Diagnoses Date Provider Providers Copied on Encounter [facility], [address] [facility] [address], [place], [id number], [place] tel:[phone] [facility] - [place] - [place] Pain in right leg 5 Jian MCCRARY, ELAINA, CODIE [place]. [address] [place] [address] [address], [place], [place], [id number] , [place]. tel:[phone] Referring Provider: Dedrick Kaiser MD J, [address] [address], [place], [address]. tel:[phone] Family History Family Member Type Diagnosis Age At Onset No Information Payers Payer name Insurance type Covered republican ID Authoriza tion(s) Medicare KALYAN PICKARD [id number] [facility] CI [id number] Social History Type Description Quantity Date Captured [...]
--- NOTE | ~2025-06-22 | MR_ITS ---
EXAMINATION: MR BRAIN WITHOUT CONTRAST CLINICAL INFORMATION: R 41.89. COMPARISON: None available. TECHNIQUE: MRI of the brain was obtained using routine sequences without contrast. FINDINGS: No restricted diffusion. No acute intracranial hemorrhage, mass effect, midline shift, hydrocephalus or herniation. Braga-white matter differentiation is normal. Posterior cranial fossa contents demonstrated old lacunar infarcts, left cerebellum. Flow-void signal within the main cerebral vessels is normal. Sellar/suprasellar region is normal. Craniocervical junction is intact with normal position of the cerebellar tonsils. Prominence of the extra-axial CSF spaces and cerebral sulci involving mostly the frontoparietal lobes. No signal abnormality or gross volume loss in the hippocampi. MR/MR head/brain wo con IMPRESSION: Bifrontal parietal lobe atrophy, mild. No acute brain abnormality. 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 Electronically signed by: Clark Wells MD 06/22/2025 08:32 AM EST
--- OUTSIDE RECORDS SUMMARY | 2025-06-22 07:25 | XMS_ITS | Clinical Summary ---
Author Organization [facility] Prior to 12/12/24 Address [address] [place] [address] Care Team Providers Care Zigzag Topstitcher Name Role Phone Erasmo White PA-C Primary Care Provider +1- [phone] Allergies Active Allergy Reactions Criticality Noted Date [...] morning on an empty stomach. 0 Active [place]-3 Fatty Acids (FISH OIL PO) Take by [...] age to complete this topic Care Teams Zigzag Topstitcher Relationship Specialty Start Date End Date Erasmo White PA-C [address] [place] [phone] PCP - General Medical Services 12/28/20
--- OUTSIDE RECORDS SUMMARY | 2025-06-22 07:25 | XMS_ITS | Clinical Summary ---
Author Organization [facility] Address [address] [place] [address] Phone Care Team Providers Care Marketing Analytics Specialist Name Role Phone Erasmo Jonas Primary Care Provider Allergies Active Allergy Reactions Criticality Noted Date Comments Atovaquone-Proguanil Other High 11/23/2012 Almost blind as a reaction Ketoconazole Angioedema,Hives,Itc h ing,Other High 01/01/2017 cream 2% Other 12/01/2020 [facility] Medications omeprazole-sodi um bicarbonate 20-1.1 mg-gram [...] aqta) 19yo and older 02/19/2013,09/04/2012 Hepatitis B (Mrkugay-V-Kbrgr , Recombivax HB-Adult) 19yo and older 05/04/2014,04/20/2014,04/13/2014 IPV Inactivated polio (Ipol) 6wks and older 03/17 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 09/03/19,09/04/2012 Surgical History Surgery Date Site/Laterality Comments SECTION PROCEDURE: KS DELIVERY ONLY ROTATOR CUFF REPAIR Bilateral PROCEDURE: HISTORICAL ROTATOR CUFF REPAIR OTHER SURGICAL HISTORY 12/14/2020 Bilateral PROCEDURE: KS MASTECTOMY SIMPLE COMPLETE; COMMENT: Bilateral simple mastectomy, [...] Care Team (Late st Contact Info) Description 08/24/2025 1:20 PM EST Office Visit [facility] [address] [place] [address] Tonya Birmingham MD [address] [place] [address] Health Maintenance Due Date Last Done Comments [...] 02/05/2024 02/04/2023 Depression Screening 07/15/2024 COVID-19 Vaccine ( season) 2025 04/13/2024, 04/17/2023, 04/12/2022, Additional history [...] COLONOSCOPY REPORT Routine 11/24/2024 11:35 AM EDT [facility] DEXA AXIAL SKELETON Routine 02/17/2024 9:19 AM EDT Other specified disorders of bone density and structure, multiple sites [facility] SCREENING DIGITAL Routine 11/15/2020 4:34 PM EDT Encounter for screening mammogram for malignant neoplasm of breast from Last 3 Months or Most Recently Relevant to Health Maintenance Results * External Colonoscopy Report (11/24/2024 11:35 AM EDT) Anatomical Region Laterality Modality Endoscopy us Historical Provider GI~PROCEDURE ORDERABLES F inal Result * [facility] DEXA AXIAL SKELETON (02/17/2024 9:19 AM EDT) Anatomical Region Laterality Modality Mammography 02/17/2024 8:22 AM EDT Narrative 02/17/2024 9:19 AM EDT Diagnostic Imaging Department [address] [place] [address] Patient: VANESSA ARMIJO Sofya /Age/Sex: 1950 - 73 - F Unit#: [id number] Location/Status: SPDIMAM/REG CLI Mnemonic[facility] Ordering Physician: ERASMO JONAS PA-C [facility] Dexa Axial Skeleton - [...] probability of hip fracture of 0.7%. Code 88363 Dictating Physician: CORRY CARDOZO MD Electronically Signed by: CORRY CARDOZO MD Dic Date/Time: 02/17/24916 Sign date/Time: 02/17/24918 Procedure Note Corry Cardozo MD - 04/29/2024 Diagnostic Imaging Department [address] [place] [address] Patient: VANESSA ARMIJO /Age/Sex: 1950 - 73 - F Unit#: [id number] Location/Status: SPDIMA/REG CLI Mnemonic/Ordering Site: [facility]DEXAAX/SPMAM Ordering Physician: ERASMO JONAS PA-C [facility] Dexa Axial Skeleton - [...] density of the femurs bilaterally is 1.121 gm/yd7qmefq is 111% of that of young normals [...] probability of hip fracture of 0.7%. Code 72992 Dictating Physician: CORRY CARDOZO MD Electronically Signed by: CORRY CARDOZO MD Dic Date/Time: 02/17/24916 Sign date/Time: 02/17/24918 us Erasmo BORJA [facility] BI PROCEDURES Final Resu lt * [facility] SCREENING DIGITAL (11/15/2020 4:34 PM EDT) Anatomical Region Laterality Modality Mammography 11/15/2020 9:03 AM EDT Narrative 11/15/2020 4:34 PM EDT Diagnostic Imaging Department [address] [place] [address] Patient: VANESSA ARMIJO Sofya /Age/Sex: 1950 - 69 - F Unit#: [id number] [facility] Mnemonic/Ordering Site: [facility] Ordering Physician: ERASMO JONAS PA-C [facility] Screening Digital - 11/15/20958 History: Breast cancer screening. Technique: Bilateral digital mammography. Conventional CC and MLO projections with tomosynthesis MLO views and computer aided detection. Comparison: [facility] 08/28/2019, dating back to 03/02/2005. Findings: [...] 0: Incomplete. Needs further imaging evaluation, [id number], [id number] Patient information entered into a reminder system with a target date for the next [place]ogram. [id number] Dictating Physician: JACOB ROACH MD Electronically Signed by: JACOB ROACH MD Dic Date/Time: 11/15/20 1626 Sign date/Time: 11/15/20 1634 Procedure Note Jacob Roach MD - 07/03/2022 Diagnostic Imaging Department [address] [place] [id number] Patient: VANESSA ARMIJO /Age/Sex: 1950 - 69 - F Unit#: [id number] Location/Status: SPDIMA/REG CLI Mnemonic/Ordering Site: [facility] Ordering Physician: ERASMO JONAS PA-C [facility] Screening Digital - 11/15/20 - 0959 History: Breast cancer screening. Technique: Bilateral digital mammography. Conventional CC and MLOprojections with tomosynthesis MLO views and computer aided detection. Comparison: [facility] 08/28/2019, dating back to 03/02/2005. Findings: Breast tissue consists of fibroglandular tissue diffusely, decreasing sensitivity of mammography, category d density (as calculatedby bigtincanpara software). Grouping of branching calcifications identified within [...] 0: Incomplete. Needs further imaging evaluation, 3340F [id number], [id number] Patient information entered into a reminder system with a target date forthe next mammogram. [id number] Dictating Physician: JACOB ROACH MD Electronically Signed by: JACOB ROACH MD Dic Date/Time: 11/15/20 1626 Sign date/Time: 11/15/20 1634 Erasmo [facility] BI PROCEDURES Final Resu lt from Last 3 Months or Most Recently Relevant to Health Maintenance Insurance MEDICARE [facility] Advance Directives Documents on File Type Date Recorded Patient Theatrical Agent Expl anation Health Care Decision (hx) 12/07/2020 TOMAS RAMIREZ DIRECTIVE Care Teams Marketing Analytics Specialist Relationship Specialty Start Date End Date Erasmo Jonas PA [address] [phone] PCP - General Internal Medicine 12/01/20
== END 2025-06-22 07:19 | disposition home or self-care (01) ==
LOC: HO.MRI 07:18
PROVIDERS: PCP Physician Assistant Medical; Visit Provider Psychiatry & Neurology Neurology
DX: R41.89 Other symptoms and signs involving cognitive functions and awareness (principal)
CPT/HCPCS: 70551